=== PATIENT | female | born 1970 | race African-American/Black ===

== ENCOUNTER 2018-11-09 16:31 | Emergency (ER) | payer SELFPAY ==
[~2018-11-09] VITALS: Ht 170.2 cm; Wt 84.5 kg
[2018-11-09] MEDS ORDERED: LEVO112T4 PO (16:42)
[2018-11-09] MEDS ORDERED: KETOROLAC TROMETHAMINE 10 MG TABLET PO ONE (19:30)
[2018-11-09 19:53] VITALS: BP 123/71
== END 2018-11-09 20:00 | disposition home or self-care (01) ==
LOC: EMS 16:34
DX: S53.402A Unspecified sprain of left elbow, initial encounter (principal); M77.12 Lateral epicondylitis, left elbow; E05.90 Thyrotoxicosis, unspecified without thyrotoxic crisis or storm; X50.9XXA Other and unspecified overexertion or strenuous movements or postures, initial encounter; Y93.89 Activity, other specified; Y92.89 Other specified places as the place of occurrence of the external cause; Y99.8 Other external cause status